=== PATIENT | male | born 1945 | race Caucasian/White ===

== ENCOUNTER 2021-10-28 14:50 | Inpatient (IN) | payer MEDICARE, BC ==
[~2021-10-28] VITALS: Ht 175.3 cm; Wt 74.8 kg
[2021-10-28 15:17] LABS: HEMATOCRIT 29.1 % (36.7-47.1); MEAN CORPUSCULAR HEMOGLOBIN 34.2 uug (23.8-33.4); MEAN CORPUSCULAR VOLUME 97.7 fL (73.0-96.2); PLATELET COUNT (AUTO) 162 K/uL (152-348)
[2021-10-28 15:25] LABS: CARBON DIOXIDE 31 mmol/L (21-32); CHLORIDE 98 mmol/L (98-107); CREATININE 1.7 mg/dL (0.6-1.3); GLUCOSE 119 mg/dL (74-106); UREA NITROGEN, BLOOD 47 mg/dL (7-18)
[2021-10-28 15:33] LABS: ALANINE AMINOTRANSFERASE 310 U/L (16-63); ALKALINE PHOSPHATASE 67 U/L (50-136); ASPARTATE AMINOTRANSFERASE 212 U/L (15-37); BILIRUBIN,DIRECT 0.5 mg/dL (0.0-0.2); BILIRUBIN,TOTAL 1.2 mg/dL (0.2-1.0); TOTAL PROTEIN, SERUM 6.5 g/dL (6.4-8.2)
[2021-10-28 15:43] LABS: THYROID STIMULATING HORMONE 7.479 mIU/mL (0.358-3.740)
[2021-10-28] MEDS ORDERED: ACETAMINOPHEN 325 MG TABLET PO PRN (18:00)
[2021-10-28] MEDS ORDERED: MAGNESIUM HYDROXIDE 30 ML LIQUID UDC PO PRN (18:00)
[2021-10-28] MEDS ORDERED: ONDANSETRON 4 MG/2 ML VIAL IV PRN (18:00)
[2021-10-28] MEDS ORDERED: REMEDY ESSENTIAL ZINC PASTE 113 GM TP PRN (18:00)
[2021-10-28] MEDS ORDERED: AZITHROMYCIN 250 MG TABLET PO ONE (18:30)
[2021-10-28] MEDS ORDERED: CEFTRIAXONE 1 G in IV DEXTROSE 5% 50 ML IV ONE (18:30)
--- NOTE | 2021-10-28 21:03 | NUR ---
report given to Ana RN pt to go to room 306
[2021-10-28] MEDS ORDERED: AZITHROMYCIN 250 MG TABLET ONE (21:06)
[2021-10-28] MEDS ORDERED: CEFTRIAXONE /D5W 50ML IVPB **ER PYXIS IV ONE (21:06)
--- NOTE | 2021-10-28 21:42 | NUR ---
ADMITTED FROM HOME VIA ER A 76 YO MALE WITH ADMITTING DX OFACUTE AND CHRONIC CHF, PNEUMONIA ACCOMPANIED BY DAUGHTER. AWAKE ALERT AND VERBALLY RESPONSIVE WITH PERIODS OF FORGETFULNESS/CONFUSION. WITH 2L NC SATURATING 95%, DENIES SOB OR PAIN,. SEEN BY DR ESCOBAR WITH ORDERS. ROUTINE ADMISSION ASSESSMENT DONE. SR ON MONITOR
--- NOTE | 2021-10-28 21:55 | NUR ---
pt tr to room 306 via [place] with all belongings, pt's daughter accompanied the pt upstairs.
[2021-10-28 22:00] VITALS: BP 124/73
--- NOTE | 2021-10-28 22:24 | NUR ---
SEEN AND EXAMINED BY BY DR ESCOBAR, SEE NOTES
[2021-10-28] MEDS: IV NS 1000 ML 1,000 ML IV PRN (22:40)
[2021-10-28] MEDS: ENOXAPARIN SODIUM 40 MG/0.4 ML DISP.SYRIN SQ SCH (22:40)
[2021-10-28] MEDS ORDERED: GLUCERNA 1.2 1000ML LIQUID GT PRN (23:15)
[2021-10-29] VITALS: BP 122/77
[2021-10-29 04:00] VITALS: BP 116/74
--- NOTE | 2021-10-29 05:39 | NUR ---
SLEPT COMFORTABLY DURING THE SHIFT, CLOSELY MONITORED. PATIENT TENDS TO GET UP BY SELF X2 DURING THE SHIFT. REALITY ORIENTATION DONE. SR ON MONITOR
[2021-10-29 06:52] LABS: HEMATOCRIT 28.4 % (36.7-47.1); MEAN CORPUSCULAR HEMOGLOBIN 34.7 uug (23.8-33.4); MEAN CORPUSCULAR VOLUME 96.4 fL (73.0-96.2); PLATELET COUNT (AUTO) 191 K/uL (152-348)
[2021-10-29 07:14] LABS: ALANINE AMINOTRANSFERASE 260 U/L (16-63); ALKALINE PHOSPHATASE 72 U/L (50-136); ASPARTATE AMINOTRANSFERASE 151 U/L (15-37); BILIRUBIN,TOTAL 1.1 mg/dL (0.2-1.0); CARBON DIOXIDE 30 mmol/L (21-32); CHLORIDE 101 mmol/L (98-107); CREATININE 1.6 mg/dL (0.6-1.3); GLUCOSE 83 mg/dL (74-106); MAGNESIUM 1.9 mg/dL (1.8-2.4); PHOSPHOROUS 4.7 mg/dL (2.5-4.9); POTASSIUM 3.9 mmol/L (3.5-5.1); TOTAL PROTEIN, SERUM 6.5 g/dL (6.4-8.2); UREA NITROGEN, BLOOD 41 mg/dL (7-18)
[2021-10-29 10:08] VITALS: BP 139/78
[2021-10-29] MEDS: IV NS 1000 ML 1,000 ML IV PRN (11:40)
--- NOTE | 2021-10-29 11:50 | NUR ---
WOUND CARE CONSULT: PT PRESENTS WITH BILATERAL HEEL INTACT DEEP TISSUE INJURIES AND SACRAL DEEP TISSUE INJURY IN EVOLUTION, ALL PRESENT ON ADMISSION. RECOMMENDATIONS MADE FOR SKIN PROTECTION AND WOUND CARE. DISCUSSED WITH NURSING STAFF. DR PENNINGTON NOTIFIED OF SURGICAL CONSULT REQUEST. IN AGREEMENT WITH PLAN OF CARE.
[2021-10-29 15:10] VITALS: BP 127/69
[2021-10-29 16:14] VITALS: BP 138/82
[2021-10-29] MEDS: CLOTRIMAZOLE 1% CREAM 30 GM TUBE TOP SCH (16:19)
--- NOTE | 2021-10-29 18:42 | NUR ---
Patient received care well throughout shift. Patient complaining of pain originating due to sacrum sore and pain around rectum. notified of patients complaints and requested medication to help alleviate pain. IV site patent and intact. Wound managed through wound care interventions. Bed left in lowest position with call light. Comfort measures provided. Will endorse information to PM nurse.
[2021-10-29] MEDS: ENOXAPARIN SODIUM 40 MG/0.4 ML DISP.SYRIN SQ SCH ×2 (21:00→21:28)
[2021-10-29 21:07] VITALS: BP 142/77
[2021-10-29] MEDS: CEFTRIAXONE 1 G in IV DEXTROSE 5% 50 ML IV SCH (21:22)
[2021-10-29] MEDS: AZITHROMYCIN IV 500 MG in IV DEXTROSE 5% 250 ML IV SCH (22:37)
[2021-10-29] MEDS: MORPHINE SULFATE 2 MG/1 ML DISP.SYRIN IV PRN (23:49)
[2021-10-30 00:39] VITALS: BP 149/82
[2021-10-30] MEDS: MORPHINE SULFATE 2 MG/1 ML DISP.SYRIN IV PRN ×3 (04:07→21:23)
[2021-10-30] MEDS: IV NS 1000 ML 1,000 ML IV PRN ×2 (04:16→17:25)
[2021-10-30 04:35] VITALS: BP 129/72
[2021-10-30] MEDS: CLOTRIMAZOLE 1% CREAM 30 GM TUBE TOP SCH ×2 (08:10→16:13)
[2021-10-30] MEDS: GABAPENTIN 100 MG CAPSULE PO SCH ×2 (12:21→16:12)
--- NOTE | 2021-10-30 16:19 | NUR ---
Dietary notified of patients overall feeding goal. [employer] Worker unavailable today, but when speaking to dietary, noted to notify vaccine manager regarding situation. Patient currently at 20cc/hr.
[2021-10-30 16:54] VITALS: BP 126/79
--- NOTE | 2021-10-30 17:57 | NUR ---
Patient received care well throughout shift with moderate complaints of pain. Pain managed through medicinal means, along with nonpharmacological methods. Patient cleaned and bathed during shift. Wound managed through appropriate interventions. IV site patent and intact. G-Tube patent and intact, currently receiving 20cc/hr. Due to no update from dietary, patient originally ordered to have rate increased 10cc every 6 hours. Patient currently tolerating feeding at 20cc/hr. Will endorse information to PM nurse. Bed left in lowest position with call light within reach. Comfort measures provided.
--- NOTE | 2021-10-30 19:40 | NUR ---
Received in bed alert oriented, no sob no chest pain, complain of emily anus pain due to sores, will medicate as ordered, patient refused Lovenox Sub Q, stated "it's not good for me", explained the risk and benefit of the medications. cont on abx IV with adverse reaction noted, cont to monitor, kept clean and dry, cont to monitor.
[2021-10-30] MEDS: ENOXAPARIN SODIUM 40 MG/0.4 ML DISP.SYRIN SQ SCH (21:00)
[2021-10-30 21:03] VITALS: BP 134/77
[2021-10-30] MEDS: CEFTRIAXONE 1 G in IV DEXTROSE 5% 50 ML IV SCH (21:11)
[2021-10-30] MEDS: AZITHROMYCIN IV 500 MG in IV DEXTROSE 5% 250 ML IV SCH (21:57)
--- NOTE | 2021-10-30 23:00 | NUR ---
Patient feeding was increased to 30cc per hour, tolerate well, no vomiting no diarrhea noted, no rediual noted, patient has soft BM small amount, kept clean dry and comfortable, condom cath in place draining with yellow color urine in moderate amount, on low air loss mattres for wound management, cont to monitor.
[2021-10-31] MEDS: MORPHINE SULFATE 2 MG/1 ML DISP.SYRIN IV PRN ×3 (03:11→17:09)
[2021-10-31 04:31] VITALS: BP 117/48
[2021-10-31] MEDS: GABAPENTIN 100 MG CAPSULE PO SCH ×3 (08:18→16:29)
[2021-10-31] MEDS: CLOTRIMAZOLE 1% CREAM 30 GM TUBE TOP SCH ×2 (08:18→16:30)
[2021-10-31 11:32] VITALS: BP 106/56
[2021-10-31 14:57] LABS: ALANINE AMINOTRANSFERASE 133 U/L (16-63); ALKALINE PHOSPHATASE 65 U/L (50-136); ASPARTATE AMINOTRANSFERASE 57 U/L (15-37); BILIRUBIN,TOTAL 0.6 mg/dL (0.2-1.0); CARBON DIOXIDE 29 mmol/L (21-32); CHLORIDE 106 mmol/L (98-107); CREATININE 1.4 mg/dL (0.6-1.3); GLUCOSE 124 mg/dL (74-106); POTASSIUM 5.1 mmol/L (3.5-5.1); TOTAL PROTEIN, SERUM 6.2 g/dL (6.4-8.2); UREA NITROGEN, BLOOD 32 mg/dL (7-18)
[2021-10-31] MEDS: GLUCERNA 1.2 1000ML LIQUID GT PRN (15:23)
[2021-10-31 15:55] LABS: *BILIRUBIN,URIN NEGATIVE (NEGATIVE); *BLOOD, URINE TRACE (NEGATIVE); *CLARITY,URINE CLEAR (CLEAR); *COLOR,URINE YELLOW (YELLOW); *KETONES,URINE NEGATIVE (NEGATIVE); LEUKOCYTE ESTERASE ,URINE NEGATIVE (NEGATIVE); NITRITE, URINE NEGATIVE (NEGATIVE); UGLUCOSE NEGATIVE (NEGATIVE)
[2021-10-31 16:00] VITALS: BP 106/69
[2021-10-31 16:10] LABS: *CREATININE,URINE 74.3 mg/dL (30-125)
[2021-10-31 20:06] VITALS: BP 106/59
[2021-10-31] MEDS: CEFTRIAXONE 1 G in IV DEXTROSE 5% 50 ML IV SCH (20:55)
[2021-10-31] MEDS: ENOXAPARIN SODIUM 40 MG/0.4 ML DISP.SYRIN SQ SCH (21:00)
--- NOTE | 2021-10-31 21:00 | NUR ---
PATIENT REFUSED SCHEDULED ENOXAPARIN DESPITE HEALTH TEACHING.
[2021-10-31] MEDS: AZITHROMYCIN IV 500 MG in IV DEXTROSE 5% 250 ML IV SCH (21:41)
[2021-11-01 00:07] LABS: BACTERIA,URINE NONE SEEN /HPF (NONE SEEN); RBC,URINE 0-3 /HPF (0-3); SQUAMOUS EPITHELIAL CELL,UR NONE SEEN /HPF (NONE SEEN); WBC,URINE NONE SEEN /HPF (0-3)
--- NOTE | 2021-11-01 00:35 | NUR ---
RECEIVED PATIENT IN BED. AAOX4. ABLE TO MAKES NEEDS KNOWN. ON ROOM AIR. GTUBE FEEDING PATENT AND INTACT. IV ACCESS PATENT AND INTACT. PATIENT DENIES SOB, CHEST PAIN OR DIZZINESS AT THIS TIME. CALL LIGHT WITHIN REACH. BED IN LOCKED POSITION. SAFETY PRECAUTIONS INITIATED.
[2021-11-01 04:06] VITALS: BP 106/62
[2021-11-01] MEDS: MORPHINE SULFATE 2 MG/1 ML DISP.SYRIN IV PRN ×2 (06:45→10:50)
[2021-11-01 07:41] LABS: HEMATOCRIT 28.7 % (36.7-47.1); MEAN CORPUSCULAR HEMOGLOBIN 34.3 uug (23.8-33.4); MEAN CORPUSCULAR VOLUME 96.5 fL (73.0-96.2); PLATELET COUNT (AUTO) 208 K/uL (152-348)
[2021-11-01] MEDS: GABAPENTIN 100 MG CAPSULE PO SCH ×3 (08:04→16:22)
[2021-11-01 08:20] LABS: ALANINE AMINOTRANSFERASE 113 U/L (16-63); ALKALINE PHOSPHATASE 63 U/L (50-136); ASPARTATE AMINOTRANSFERASE 45 U/L (15-37); BILIRUBIN,TOTAL 0.5 mg/dL (0.2-1.0); CARBON DIOXIDE 29 mmol/L (21-32); CHLORIDE 105 mmol/L (98-107); CHOLESTEROL 69 mg/dL (<200); CREATININE 1.5 mg/dL (0.6-1.3); GLUCOSE 128 mg/dL (74-106); HDL CHOLESTEROL 28 mg/dL (40-60); PHOSPHOROUS 4.5 mg/dL (2.5-4.9); POTASSIUM 4.1 mmol/L (3.5-5.1); TOTAL PROTEIN, SERUM 6.2 g/dL (6.4-8.2); TRIGLYCERIDES 52 MG/DL (30-150); UREA NITROGEN, BLOOD 29 mg/dL (7-18)
[2021-11-01] MEDS: CLOTRIMAZOLE 1% CREAM 30 GM TUBE TOP SCH ×2 (08:53→16:24)
[2021-11-01 09:19] LABS: IRON, SERUM 42 ug/dL (50-175)
[2021-11-01 11:33] VITALS: BP 105/60
[2021-11-01] MEDS: GLUCERNA 1.2 1000ML LIQUID GT PRN (13:42)
[2021-11-01 16:00] VITALS: BP 98/56
[2021-11-01] MEDS ORDERED: AZIT500V8 IV (17:27)
[2021-11-01] MEDS ORDERED: CEFT1VIA15 IV (17:27)
[2021-11-01] MEDS ORDERED: Morphine Sulfate Inj IV (17:27)
[2021-11-01] MEDS ORDERED: ACET325T53 PO (17:27)
[2021-11-01] MEDS ORDERED: Glucerna 1.2 GT (17:27)
[2021-11-01] MEDS ORDERED: MAGN400O6 PO (17:27)
[2021-11-01] MEDS ORDERED: GABA-532 PO (17:27)
[2021-11-01] MEDS ORDERED: MENT113O TP (17:27)
[2021-11-01] MEDS ORDERED: ENOX40DI SQ (17:27)
[2021-11-01] MEDS ORDERED: CLOT30CR24 TOP (17:27)
--- NOTE | 2021-11-01 18:28 | NUR ---
dc orders received noted and carried out.dc instruction and education given to the pt.dc pt to aru via bed in stable condition with g tube and heplock
== END 2021-11-01 18:30 | DRG 177 ==
LOC: ER 14:50 → TELE3 21:20 → MEDSURG3 10-30 09:50
PROVIDERS: ADMIT Internal Medicine; ATTEND Internal Medicine
DX: J69.0 Pneumonitis due to inhalation of food and vomit (principal); E43 Unspecified severe protein-calorie malnutrition; J96.01 Acute respiratory failure with hypoxia; N17.0 Acute kidney failure with tubular necrosis; G92.9 Unspecified toxic encephalopathy; D68.59 Other primary thrombophilia; I50.32 Chronic diastolic (congestive) heart failure; I13.0 Hypertensive heart and chronic kidney disease with heart failure and stage 1 through stage 4 chronic kidney disease, or unspecified chronic kidney disease; J15.9 Unspecified bacterial pneumonia; Z66 Do not resuscitate; Z20.822 Contact with and (suspected) exposure to COVID-19; D53.9 Nutritional anemia, unspecified; D63.8 Anemia in other chronic diseases classified elsewhere; E03.9 Hypothyroidism, unspecified; E66.01 Morbid (severe) obesity due to excess calories; G50.0 Trigeminal neuralgia; G62.9 Polyneuropathy, unspecified; I25.10 Atherosclerotic heart disease of native coronary artery without angina pectoris; Z86.73 Personal history of transient ischemic attack (TIA), and cerebral infarction without residual deficits; Z92.3 Personal history of irradiation; Z85.819 Personal history of malignant neoplasm of unspecified site of lip, oral cavity, and pharynx; Z93.1 Gastrostomy status; Z98.1 Arthrodesis status; R53.1 Weakness; R74.01 Elevation of levels of liver transaminase levels; L89.156 Pressure-induced deep tissue damage of sacral region; L30.8 Other specified dermatitis; Z74.09 Other reduced mobility; R13.10 Dysphagia, unspecified; M50.30 Other cervical disc degeneration, unspecified cervical region; N18.2 Chronic kidney disease, stage 2 (mild); Z68.24 Body mass index [BMI] 24.0-24.9, adult
CPT/HCPCS: 36415; 70450; 71045; 71250; 72125; 76770; 83550; 83605; 83735; 84100; 84300; 84443; 84484; 85025; 87040; 93005; 93307; 97161; A4663; A6209; A6213; G0378; J0456; J0696; J1650; J2270; J7040; J7050; Q0144; U0003; Z7610

== ENCOUNTER 2021-11-01 18:41 | Inpatient (IN) | payer MEDICARE, BC ==
[~2021-11-01] VITALS: Ht 175.3 cm; Wt 74.0 kg
[~2021-11-01 18:41] MED LIST: ACET325T53 PO; AZIT500V8 IV; CEFT1VIA15 IV; CLOT30CR24 TOP; ENOX40DI SQ; GABA-532 PO; Glucerna 1.2 GT; MAGN400O6 PO; MENT113O TP; Morphine Sulfate Inj IV
--- NOTE | 2021-11-01 19:00 | NUR ---
Admitted patient in ARU unit under the care of Dr Payne and Dr Caballero, patient alert oriented, no sob no chest pain, on room air, with sacral decubitus, right and left heel decub, incontinent/continent of bowel and bladder, patient able to make needs knows, on pain management due to sacral decub, pain meds effective at this time, cont to monitor.
[2021-11-01 20:00] VITALS: BP 113/72
[2021-11-01] MEDS ORDERED: ACETAMINOPHEN 325 MG TABLET PO PRN (20:30)
[2021-11-01] MEDS ORDERED: GLUCERNA GT PRN (20:30)
[2021-11-01] MEDS ORDERED: MAGNESIUM HYDROXIDE 30 ML LIQUID UDC PO PRN (20:30)
[2021-11-01] MEDS ORDERED: REMEDY ESSENTIAL ZINC PASTE 113 GM TP PRN (20:30)
[2021-11-01] MEDS ORDERED: GLUCERNA 1.2 1000ML LIQUID GT PRN (20:45)
[2021-11-01] MEDS ORDERED: AZITHROMYCIN IV 500 MG in IV DEXTROSE 5% 250 ML IV SCH (21:00)
[2021-11-01] MEDS: ENOXAPARIN SODIUM 40 MG/0.4 ML DISP.SYRIN SQ SCH ×2 (21:00→21:27)
[2021-11-01] MEDS: GABAPENTIN 100 MG CAPSULE PO SCH (21:25)
[2021-11-01] MEDS: MORPHINE SULFATE 2 MG/1 ML DISP.SYRIN IV PRN (22:32)
[2021-11-01] MEDS: CEFTRIAXONE 1 G in IV DEXTROSE 5% 50 ML IV SCH (22:33)
[2021-11-02] MEDS: MORPHINE SULFATE 2 MG/1 ML DISP.SYRIN IV PRN ×5 (03:42→21:35)
[2021-11-02 04:00] VITALS: BP 116/63
[2021-11-02] MEDS: LEVOTHYROXINE SODIUM 25 MCG TABLET GT SCH (06:16)
[2021-11-02 07:30] VITALS: BP 131/66
[2021-11-02] MEDS: GABAPENTIN 100 MG CAPSULE PO SCH ×2 (08:04→12:43)
[2021-11-02] MEDS: CLOTRIMAZOLE 1% CREAM 30 GM TUBE TOP SCH ×2 (08:05→16:13)
[2021-11-02] MEDS ORDERED: AZITHROMYCIN 500 MG VIAL IV SCH (09:00)
[2021-11-02] MEDS: MULTIVITAMINS,THERAPEUTIC TABLET GT SCH (09:14)
--- NOTE | 2021-11-02 10:47 | NUR ---
WOUND CARE CONSULT: PT PRESENTS WITH SACRAL DEEP TISSUE INJURY WHICH IS PRESENT ON ADMISSION. DR PENNINGTON NOTIFIED OF ADMISSION TO REHAB. RECOMMENDATIONS MADE FOR SKIN PROTECTION. DISCUSSED WITH NURSING STAFF. PT IS ON FIRST STEP CHHAYA CONDE MD IN AGREEMENT WITH PLAN OF CARE. Addendum: 11/02/21 at 1049 by COLLEEN GRACE RN ADDITIONAL: BILATERAL INTACT DEEP TISSUE INJURIES NOTED TO HEELS, PRESENT ON ADMISSION.
[2021-11-02] MEDS ORDERED: HYDROCODONE/APAP 10-325 MG TABLET PO PRN (13:00)
[2021-11-02] MEDS ORDERED: HYDROCODONE/APAP 10-325 MG TABLET GT PRN (14:36)
[2021-11-02] MEDS ORDERED: MAGNESIUM HYDROXIDE 30 ML LIQUID UDC GT PRN (14:37)
[2021-11-02 16:00] VITALS: BP 113/69
[2021-11-02] MEDS: GABAPENTIN 100 MG CAPSULE GT SCH (16:13)
[2021-11-02] MEDS: ACETAMINOPHEN 325 MG TABLET GT PRN (19:53)
[2021-11-02 20:00] VITALS: BP 123/64
[2021-11-02] MEDS: ENOXAPARIN SODIUM 40 MG/0.4 ML DISP.SYRIN SQ SCH (21:00)
[2021-11-02] MEDS: CEFTRIAXONE 1 G in IV DEXTROSE 5% 50 ML IV SCH (21:35)
[2021-11-03] MEDS: MORPHINE SULFATE 2 MG/1 ML DISP.SYRIN IV PRN ×2 (02:52→11:21)
[2021-11-03 04:00] VITALS: BP 110/53
--- NOTE | 2021-11-03 05:50 | NUR ---
Safety maintained throughout the night. Tolerated tube feedings, no residual. Able to make needs known. IV site leaking, new IV inserted, tolerated well. Tolerated all medications given. Wound care done. Will endorse to day shift.
[2021-11-03] MEDS: LEVOTHYROXINE SODIUM 25 MCG TABLET GT SCH (06:17)
[2021-11-03 08:04] VITALS: BP 106/59
[2021-11-03] MEDS: MULTIVITAMINS,THERAPEUTIC TABLET GT SCH (09:42)
[2021-11-03] MEDS: GABAPENTIN 100 MG CAPSULE GT SCH ×3 (09:42→17:27)
[2021-11-03] MEDS: CLOTRIMAZOLE 1% CREAM 30 GM TUBE TOP SCH ×2 (09:43→17:27)
--- NOTE | 2021-11-03 14:00 | NUR ---
INTERDISCIPLINARY TEAM CONFERENCE
[2021-11-03 16:15] VITALS: BP 98/54
--- NOTE | 2021-11-03 18:00 | NUR ---
PT AOX4 NO ACUTE DISTRESS NOTED. PT TOLERATED FEEDING AT 70CC/HR. CHANGE SACRAL WOUND DRESSING. LISETTE HEEL REDNESS APPLIED MEPILEX FOR PROTECTION. REPOSITIONED Q2H. NO PAIN COMPLAIN. IV SITE INTACT AND PATENT
[2021-11-03 20:00] VITALS: BP 108/64
[2021-11-03] MEDS ORDERED: CEFTRIAXONE 1 G in IV DEXTROSE 5% 50 ML IV SCH (21:00)
[2021-11-03] MEDS: ENOXAPARIN SODIUM 40 MG/0.4 ML DISP.SYRIN SQ SCH (21:23)
[2021-11-04] MEDS: MORPHINE SULFATE 2 MG/1 ML DISP.SYRIN IV PRN ×4 (01:30→18:16)
[2021-11-04 04:34] VITALS: BP 117/58
[2021-11-04] MEDS: LEVOTHYROXINE SODIUM 25 MCG TABLET GT SCH (06:25)
[2021-11-04 06:43] LABS: HEMATOCRIT 27.5 % (36.7-47.1); MEAN CORPUSCULAR VOLUME 95.9 fL (73.0-96.2); PLATELET COUNT (AUTO) 235 K/uL (152-348)
[2021-11-04] MEDS: GLUCERNA 1.2 1000ML LIQUID GT PRN (06:52)
[2021-11-04 07:13] LABS: ALANINE AMINOTRANSFERASE 71 U/L (16-63); ALKALINE PHOSPHATASE 62 U/L (50-136); ASPARTATE AMINOTRANSFERASE 37 U/L (15-37); BILIRUBIN,TOTAL 0.4 mg/dL (0.2-1.0); CARBON DIOXIDE 31 mmol/L (21-32); CHLORIDE 103 mmol/L (98-107); CREATININE 1.4 mg/dL (0.6-1.3); GLUCOSE 117 mg/dL (74-106); MAGNESIUM 2.1 mg/dL (1.8-2.4); PHOSPHOROUS 5.5 mg/dL (2.5-4.9); POTASSIUM 4.6 mmol/L (3.5-5.1); TOTAL PROTEIN, SERUM 6.5 g/dL (6.4-8.2); UREA NITROGEN, BLOOD 31 mg/dL (7-18)
[2021-11-04 07:32] VITALS: BP 111/66
[2021-11-04] MEDS: MULTIVITAMINS,THERAPEUTIC TABLET GT SCH (08:35)
[2021-11-04] MEDS: GABAPENTIN 100 MG CAPSULE GT SCH ×3 (08:36→16:01)
[2021-11-04] MEDS: CLOTRIMAZOLE 1% CREAM 30 GM TUBE TOP SCH ×2 (08:36→16:01)
--- NOTE | 2021-11-04 13:30 | NUR ---
INDIVIDUALIZED PLAN OF CARE
[2021-11-04 16:00] VITALS: BP 113/66
--- NOTE | 2021-11-04 18:32 | NUR ---
Patient received care well throughout shift with no complaints of pain or distress. IV site patent and intact. G-Tube patent and intact currently receiving 70cc/hr for 22 hours, off at 0600 and on at 0800. Pain managed through medicinal interventions. Wound dressing managed through appropriate interventions. Bed left in lowest position with call light within reach. Comfort measures provided. Will endorse information to PM nurse.
--- NOTE | 2021-11-04 19:30 | NUR ---
Received pt awake, alert and orientedx4. Pt tolerating gtube feeding. Pt IV intact. Received pt in no acute distress.Safety and comfort provided. Will continue to monitor.
[2021-11-04 20:05] VITALS: BP 129/60
[2021-11-04] MEDS: ENOXAPARIN SODIUM 40 MG/0.4 ML DISP.SYRIN SQ SCH (20:38)
--- NOTE | 2021-11-04 20:39 | NUR ---
Pt refused his LOvenox medication. Pt educated regarding his LOvenox medication.{t stable. Will continue to monitor.
[2021-11-05] MEDS: GLUCERNA 1.2 1000ML LIQUID GT PRN (03:49)
[2021-11-05 04:32] VITALS: BP 111/64
[2021-11-05] MEDS: LEVOTHYROXINE SODIUM 25 MCG TABLET GT SCH (06:15)
--- NOTE | 2021-11-05 06:40 | NUR ---
Pt in no acute distress. Iv intact. Prescribed medication given and pt tolerated it well. Pt stable. Pt assisted to the restroom. Pt tolerating gtube feeding. Pt can make his needs known. Will endorse to incoming nurse for continuity of care.
[2021-11-05 07:15] LABS: HEMATOCRIT 27.7 % (36.7-47.1); MEAN CORPUSCULAR HEMOGLOBIN 33.6 uug (23.8-33.4); MEAN CORPUSCULAR VOLUME 96.4 fL (73.0-96.2); PLATELET COUNT (AUTO) 233 K/uL (152-348)
[2021-11-05 07:48] LABS: ALANINE AMINOTRANSFERASE 68 U/L (16-63); ALKALINE PHOSPHATASE 64 U/L (50-136); ASPARTATE AMINOTRANSFERASE 34 U/L (15-37); BILIRUBIN,TOTAL 0.5 mg/dL (0.2-1.0); CARBON DIOXIDE 32 mmol/L (21-32); CHLORIDE 103 mmol/L (98-107); CREATININE 1.5 mg/dL (0.6-1.3); GLUCOSE 118 mg/dL (74-106); MAGNESIUM 2.3 mg/dL (1.8-2.4); PHOSPHOROUS 5.6 mg/dL (2.5-4.9); POTASSIUM 4.8 mmol/L (3.5-5.1); TOTAL PROTEIN, SERUM 6.5 g/dL (6.4-8.2); UREA NITROGEN, BLOOD 34 mg/dL (7-18)
[2021-11-05 07:55] VITALS: BP 114/63
[2021-11-05] MEDS: MULTIVITAMINS,THERAPEUTIC TABLET GT SCH (09:13)
[2021-11-05] MEDS: GABAPENTIN 100 MG CAPSULE GT SCH ×3 (09:13→17:11)
[2021-11-05] MEDS: MORPHINE SULFATE 2 MG/1 ML DISP.SYRIN IV PRN ×4 (09:13→23:38)
[2021-11-05] MEDS: CLOTRIMAZOLE 1% CREAM 30 GM TUBE TOP SCH ×2 (09:13→17:12)
[2021-11-05 11:58] VITALS: BP 115/61
[2021-11-05] MEDS: ACETAMINOPHEN 325 MG TABLET GT PRN (12:00)
[2021-11-05 15:54] VITALS: BP 96/53
--- NOTE | 2021-11-05 17:30 | NUR ---
Pt is a/o x 4, able to suction himself at bedside. Changed suction tubing due to mucus clogging. Pt is on 1L nasal cannula, changed nasal cannula as well. Pt complains of pain, asks for prn morphine q4h. comfort measures provided, call light within reach, will continue to monitor and endorse.
[2021-11-05 20:00] VITALS: BP 103/55
[2021-11-05] MEDS: ENOXAPARIN SODIUM 40 MG/0.4 ML DISP.SYRIN SQ SCH (20:52)
[2021-11-06] MEDS: GLUCERNA 1.2 1000ML LIQUID GT PRN (01:46)
[2021-11-06 04:00] VITALS: BP 112/63
[2021-11-06] MEDS: LEVOTHYROXINE SODIUM 25 MCG TABLET GT SCH (05:54)
[2021-11-06 07:49] VITALS: BP 120/73
[2021-11-06] MEDS: MULTIVITAMINS,THERAPEUTIC TABLET GT SCH (08:12)
[2021-11-06] MEDS: MORPHINE SULFATE 2 MG/1 ML DISP.SYRIN IV PRN ×4 (08:12→20:51)
[2021-11-06] MEDS: GABAPENTIN 100 MG CAPSULE GT SCH ×3 (08:12→16:18)
[2021-11-06] MEDS: CLOTRIMAZOLE 1% CREAM 30 GM TUBE TOP SCH ×2 (08:12→16:19)
[2021-11-06 11:56] VITALS: BP 133/59
[2021-11-06 16:00] VITALS: BP 137/76
--- NOTE | 2021-11-06 18:12 | NUR ---
Patient received care well throughout shift. Pain managed through appropriate medicinal interventions. Patient still receiving 1L of oxygen via nasal canula, saturating well. IV patent and intact. G-Tube patent and intact and scheduled to stop feeding at 0600. Bed left in lowest position with call light within reach. Will endorse information to PM nurse.
[2021-11-06 20:07] VITALS: BP 101/59
[2021-11-06] MEDS: THERAHONEY GEL 1.5 OZ TUBE TOP SCH (20:51)
[2021-11-06] MEDS: ENOXAPARIN SODIUM 40 MG/0.4 ML DISP.SYRIN SQ SCH (20:53)
--- NOTE | 2021-11-07 04:02 | NUR ---
Awake alert and oriented x3-4 Patient on continous tube feedings of Glucerna @70cc/hr. Tolerated well. No ill effects noted. VSS. Medicated with morphine as needed with relief obtained. Fall precaution maintained. Siderails up for safety. All due meds given. yyyyyyyyyyyyyyyyyyyyyyyyyyyyyyyyyyyyyyyyyyyyyyyyyyyyyyyyyyyyyyyyyyyyyyyyyyyyyyyyyyyyyyyyyyyy yyyyyyyyyyyyyyyyyyyyyyyyyyyyyyyyyyyyyyyyyyyyyyyyyyyyyyyyyyyyyyyyyyyyyyyyyyyyyyyyyyyyyyyyyyyy yyyyyyyyyyyyyyyyyyyyyyyyyyyyyyyyyyyyyyyyyyyyyyyyyyyyyyyyyyyyyyyyyyyyyyyyyyyyyyyyyyyyyyyyyyyy yyyyyyyyyyyyyyyyyyyyyyyyyyyyyyyyyyyyyyyyyyyyyyyyyyyyyyyyyyyyyyyyyyyyyyyyyyyyyyyyyyyyyyyyyyyy yyyyyyyyyyyyyyyyyyyyyyyyyyyyyyyyyyyyyyyyyyyyyyyyyyyyyyyyyyyyyyyyyyyyyyyyyyyyyyyyyyyyyyyyyyyy yyyyyyyyyyyyyyyyyyyyyyyyyyyyyyyyyyyyy
[2021-11-07 04:33] VITALS: BP 148/64
[2021-11-07] MEDS: LEVOTHYROXINE SODIUM 25 MCG TABLET GT SCH (06:06)
[2021-11-07] MEDS: ACETAMINOPHEN 325 MG TABLET GT PRN (06:12)
[2021-11-07] MEDS: MORPHINE SULFATE 2 MG/1 ML DISP.SYRIN IV PRN ×3 (06:47→20:59)
[2021-11-07 08:00] VITALS: BP 112/66
[2021-11-07] MEDS: GABAPENTIN 100 MG CAPSULE GT SCH ×3 (08:59→17:09)
[2021-11-07] MEDS: CLOTRIMAZOLE 1% CREAM 30 GM TUBE TOP SCH ×2 (08:59→17:10)
[2021-11-07] MEDS: MULTIVITAMINS,THERAPEUTIC TABLET GT SCH (08:59)
[2021-11-07] MEDS: THERAHONEY GEL 1.5 OZ TUBE TOP SCH (09:00)
--- NOTE | 2021-11-07 14:00 | NUR ---
ALERT AND ORIENTED FORGETFUL AT TIMES ON ROOM AIR WITH NO SOB REMAIN ON GT FEEDINGS ORDERED WITH NO S/S OF GASTRIC RESIDUAL DENIES NAUSEA OR VOMITING CONTINUE WITH PT/OT THERAPIES WITH FAIR ENDURANCE TURNED AND REPOSITIONED Q2H WITH TX TO DECUBITUS AREAS ORDERED NOT IN DISTRESS AT THIS TIME .
[2021-11-07 17:15] VITALS: BP 117/79
--- NOTE | 2021-11-07 18:00 | NUR ---
RESTING MORPHINE GIVEN REQUESTED AND EFFECTIVE MADE COMFORTABLE WILL CONTINUE TO OBSERVE.
[2021-11-07 20:15] VITALS: BP 113/64
[2021-11-07] MEDS: ENOXAPARIN SODIUM 40 MG/0.4 ML DISP.SYRIN SQ SCH (20:54)
[2021-11-07] MEDS: GLUCERNA 1.2 1000ML LIQUID GT PRN (22:28)
[2021-11-08 04:42] VITALS: BP 126/68
[2021-11-08] MEDS: LEVOTHYROXINE SODIUM 25 MCG TABLET GT SCH (06:47)
[2021-11-08 08:09] VITALS: BP 140/76
[2021-11-08] MEDS: GABAPENTIN 100 MG CAPSULE GT SCH ×3 (08:45→16:21)
[2021-11-08] MEDS: MULTIVITAMINS,THERAPEUTIC TABLET GT SCH (08:45)
[2021-11-08] MEDS: CLOTRIMAZOLE 1% CREAM 30 GM TUBE TOP SCH ×2 (08:47→16:22)
[2021-11-08] MEDS: THERAHONEY GEL 1.5 OZ TUBE TOP SCH (08:47)
[2021-11-08] MEDS: MORPHINE SULFATE 2 MG/1 ML DISP.SYRIN IV PRN ×2 (08:53→21:14)
--- NOTE | 2021-11-08 09:00 | NUR ---
NSG: Received Pt lying in bed. alert and oriented x 4, able to suction himself at bedside. Pt is on 1L nasal cannula, Pt complains of pain, asks for prn morphine q4h. comfort measures provided, call light within reach, call light within reach, will continue to monitor and endorse.
[2021-11-08 16:09] VITALS: BP 100/60
--- NOTE | 2021-11-08 19:00 | NUR ---
Received patient on bed, awake, alert oriented x3, with oxygen at 1L via nasal cannula saturating well, with ongoing G-tube feeding Glucerna at 70cc/hr for 22 hours cycle.no complaint of pain. Safety precautions provided, Call light placed within reach.
[2021-11-08 20:00] VITALS: BP 125/68
[2021-11-08] MEDS: ENOXAPARIN SODIUM 40 MG/0.4 ML DISP.SYRIN SQ SCH (20:20)
[2021-11-09] MEDS: GLUCERNA 1.2 1000ML LIQUID GT PRN ×2 (01:16→18:10)
[2021-11-09 04:00] VITALS: BP 109/57
--- NOTE | 2021-11-09 05:29 | NUR ---
Slept intermittently, not in respiratory distress, on room air. Assisted to sit at the edge of the bed. Went back to bed after few minutes. Vitally stable, for continuity of care.
[2021-11-09] MEDS: LEVOTHYROXINE SODIUM 25 MCG TABLET GT SCH (05:57)
[2021-11-09 07:50] VITALS: BP 104/59
[2021-11-09] MEDS: GABAPENTIN 100 MG CAPSULE GT SCH ×3 (09:43→17:35)
[2021-11-09] MEDS: THERAHONEY GEL 1.5 OZ TUBE TOP SCH (09:43)
[2021-11-09] MEDS: MULTIVITAMINS,THERAPEUTIC TABLET GT SCH (09:43)
[2021-11-09] MEDS: CLOTRIMAZOLE 1% CREAM 30 GM TUBE TOP SCH ×2 (09:43→18:09)
[2021-11-09 15:42] VITALS: BP 120/67
--- NOTE | 2021-11-09 18:37 | NUR ---
Received patient on bed, awake, alert oriented x3, respirations even and unlabored at room air saturating well, with ongoing G-tube feeding Glucerna at 70cc/hr for 22 hours cycle tolerated well no N/V .no complaint of pain. Up with PT /OT ambulate to BR with FWW Safety precautions provided, Call light placed within reach.
[2021-11-09 20:00] VITALS: BP 100/70
[2021-11-09] MEDS: ENOXAPARIN SODIUM 40 MG/0.4 ML DISP.SYRIN SQ SCH (20:45)
[2021-11-10 04:21] VITALS: BP 129/73
[2021-11-10] MEDS: LEVOTHYROXINE SODIUM 25 MCG TABLET GT SCH (05:48)
[2021-11-10 07:54] VITALS: BP 112/62
[2021-11-10] MEDS: CLOTRIMAZOLE 1% CREAM 30 GM TUBE TOP SCH ×2 (09:00→17:47)
[2021-11-10] MEDS: MULTIVITAMINS,THERAPEUTIC TABLET GT SCH (10:25)
[2021-11-10] MEDS: GABAPENTIN 100 MG CAPSULE GT SCH ×3 (10:25→17:47)
[2021-11-10] MEDS: THERAHONEY GEL 1.5 OZ TUBE TOP SCH (10:26)
[2021-11-10] MEDS: MORPHINE SULFATE 2 MG/1 ML DISP.SYRIN IV PRN ×2 (10:31→23:24)
--- NOTE | 2021-11-10 15:28 | NUR ---
INTERDISCIPLINARY TEAM CONFERENCE
[2021-11-10] MEDS: GLUCERNA 1.2 1000ML LIQUID GT PRN (15:35)
[2021-11-10 15:36] VITALS: BP 111/61
[2021-11-10 20:01] VITALS: BP 124/67
[2021-11-10] MEDS: ENOXAPARIN SODIUM 40 MG/0.4 ML DISP.SYRIN SQ SCH (21:09)
[2021-11-11 06:04] VITALS: BP 101/64
[2021-11-11] MEDS: LEVOTHYROXINE SODIUM 25 MCG TABLET GT SCH (06:18)
[2021-11-11 07:30] VITALS: BP 114/64
[2021-11-11] MEDS: GABAPENTIN 100 MG CAPSULE GT SCH ×3 (08:18→16:22)
[2021-11-11] MEDS: MULTIVITAMINS,THERAPEUTIC TABLET GT SCH (08:18)
[2021-11-11] MEDS: CLOTRIMAZOLE 1% CREAM 30 GM TUBE TOP SCH ×2 (08:19→16:22)
[2021-11-11] MEDS: THERAHONEY GEL 1.5 OZ TUBE TOP SCH (08:19)
[2021-11-11] MEDS: MORPHINE SULFATE 2 MG/1 ML DISP.SYRIN IV PRN ×3 (09:13→20:38)
--- NOTE | 2021-11-11 18:06 | NUR ---
Patient received care well throughout shift with moderate complaints of pain, managed through medicinal interventions. IV site patent and intact. G-Tube patent and intact, currently running 70cc/hr of Glucerna; off at 0600 and on at 0800. Patient tolerated PT/OT today. Bed left in lowest position. Comfort measures provided. Will endorse information to PM nurse.
[2021-11-11] MEDS: GLUCERNA 1.2 1000ML LIQUID GT PRN (18:35)
[2021-11-11 20:00] VITALS: BP 107/65
[2021-11-11] MEDS: ENOXAPARIN SODIUM 40 MG/0.4 ML DISP.SYRIN SQ SCH (20:18)
[2021-11-12] MEDS: MORPHINE SULFATE 2 MG/1 ML DISP.SYRIN IV PRN ×4 (03:46→20:45)
[2021-11-12 04:00] VITALS: BP 113/66
[2021-11-12] MEDS: LEVOTHYROXINE SODIUM 25 MCG TABLET GT SCH (06:19)
[2021-11-12 07:40] VITALS: BP 93/62
[2021-11-12] MEDS: GABAPENTIN 100 MG CAPSULE GT SCH ×3 (09:14→16:22)
[2021-11-12] MEDS: MULTIVITAMINS,THERAPEUTIC TABLET GT SCH (09:14)
[2021-11-12] MEDS: THERAHONEY GEL 1.5 OZ TUBE TOP SCH (09:15)
[2021-11-12] MEDS: CLOTRIMAZOLE 1% CREAM 30 GM TUBE TOP SCH ×2 (09:15→16:22)
[2021-11-12 15:50] VITALS: BP 118/72
[2021-11-12] MEDS: GLUCERNA 1.2 1000ML LIQUID GT PRN (15:53)
--- NOTE | 2021-11-12 17:44 | NUR ---
Patient tolerated care well throughout shift. Patient frustrated this morning due to lack of structure for PT/OT. Spoke to patient for reasoning of delay with therapy sessions. Pain managed through medicinal interventions. IV site patent and intact. G-Tube patent and intact, receiving 70cc/hr of Glucerna; off at 0600 on and 0800. Bed left in lowest position with call light within reach. Will endorse information to PM nurse.
[2021-11-12] MEDS: ENOXAPARIN SODIUM 40 MG/0.4 ML DISP.SYRIN SQ SCH (20:47)
[2021-11-12 21:04] VITALS: BP 112/76
[2021-11-12] MEDS ORDERED: TEMAZEPAM 15 MG CAPSULE PO PRN (23:30)
[2021-11-13 04:45] VITALS: BP 115/71
[2021-11-13] MEDS: LEVOTHYROXINE SODIUM 25 MCG TABLET GT SCH (06:24)
[2021-11-13 06:46] LABS: HEMATOCRIT 31.8 % (36.7-47.1); MEAN CORPUSCULAR HEMOGLOBIN 33.4 uug (23.8-33.4); MEAN CORPUSCULAR VOLUME 97.4 fL (73.0-96.2); PLATELET COUNT (AUTO) 237 K/uL (152-348)
[2021-11-13 07:18] LABS: ALANINE AMINOTRANSFERASE 60 U/L (16-63); ALKALINE PHOSPHATASE 80 U/L (50-136); ASPARTATE AMINOTRANSFERASE 36 U/L (15-37); BILIRUBIN,TOTAL 0.6 mg/dL (0.2-1.0); CARBON DIOXIDE 34 mmol/L (21-32); CHLORIDE 103 mmol/L (98-107); CREATININE 1.6 mg/dL (0.6-1.3); GLUCOSE 99 mg/dL (74-106); MAGNESIUM 2.2 mg/dL (1.8-2.4); PHOSPHOROUS 4.8 mg/dL (2.5-4.9); POTASSIUM 4.6 mmol/L (3.5-5.1); TOTAL PROTEIN, SERUM 7.3 g/dL (6.4-8.2); UREA NITROGEN, BLOOD 42 mg/dL (7-18)
[2021-11-13 07:54] VITALS: BP 115/68
[2021-11-13] MEDS: GABAPENTIN 100 MG CAPSULE GT SCH ×3 (08:00→16:08)
[2021-11-13] MEDS: MULTIVITAMINS,THERAPEUTIC TABLET GT SCH (08:00)
[2021-11-13] MEDS: MORPHINE SULFATE 2 MG/1 ML DISP.SYRIN IV PRN ×3 (09:17→20:26)
[2021-11-13] MEDS: CLOTRIMAZOLE 1% CREAM 30 GM TUBE TOP SCH ×2 (09:42→16:08)
[2021-11-13] MEDS: THERAHONEY GEL 1.5 OZ TUBE TOP SCH (09:43)
[2021-11-13] MEDS: GLUCERNA 1.2 1000ML LIQUID GT PRN (13:29)
[2021-11-13 16:29] VITALS: BP 138/69
[2021-11-13 20:00] VITALS: BP 126/70
[2021-11-13] MEDS: ENOXAPARIN SODIUM 40 MG/0.4 ML DISP.SYRIN SQ SCH (20:25)
[2021-11-14 04:00] VITALS: BP 111/70
[2021-11-14] MEDS: MORPHINE SULFATE 2 MG/1 ML DISP.SYRIN IV PRN ×2 (04:00→17:04)
[2021-11-14] MEDS: GLUCERNA 1.2 1000ML LIQUID GT PRN (06:16)
[2021-11-14] MEDS: LEVOTHYROXINE SODIUM 25 MCG TABLET GT SCH (06:16)
[2021-11-14 07:30] VITALS: BP 104/67
[2021-11-14] MEDS: CLOTRIMAZOLE 1% CREAM 30 GM TUBE TOP SCH ×2 (10:51→17:04)
[2021-11-14] MEDS: THERAHONEY GEL 1.5 OZ TUBE TOP SCH (10:51)
[2021-11-14] MEDS: MULTIVITAMINS,THERAPEUTIC TABLET GT SCH (10:51)
[2021-11-14] MEDS: GABAPENTIN 100 MG CAPSULE GT SCH ×3 (10:51→17:03)
[2021-11-14 16:00] VITALS: BP 109/55
[2021-11-14 20:25] VITALS: BP 126/74
[2021-11-14] MEDS: ENOXAPARIN SODIUM 40 MG/0.4 ML DISP.SYRIN SQ SCH (20:48)
[2021-11-15] MEDS: GLUCERNA 1.2 1000ML LIQUID GT PRN ×2 (00:55→21:08)
[2021-11-15] MEDS: MORPHINE SULFATE 2 MG/1 ML DISP.SYRIN IV PRN ×2 (01:03→10:37)
[2021-11-15 04:00] VITALS: BP 105/67
[2021-11-15] MEDS: LEVOTHYROXINE SODIUM 25 MCG TABLET GT SCH (05:52)
[2021-11-15 07:30] VITALS: BP 111/71
[2021-11-15] MEDS: GABAPENTIN 100 MG CAPSULE GT SCH ×3 (08:34→17:00)
[2021-11-15] MEDS: CLOTRIMAZOLE 1% CREAM 30 GM TUBE TOP SCH ×2 (08:35→17:00)
[2021-11-15] MEDS: MULTIVITAMINS,THERAPEUTIC TABLET GT SCH (08:35)
[2021-11-15] MEDS: THERAHONEY GEL 1.5 OZ TUBE TOP SCH (08:35)
[2021-11-15 16:00] VITALS: BP 101/66
[2021-11-15 20:03] VITALS: BP 118/64
[2021-11-15] MEDS: ENOXAPARIN SODIUM 40 MG/0.4 ML DISP.SYRIN SQ SCH (21:04)
[2021-11-16 04:03] VITALS: BP 139/84
[2021-11-16] MEDS: LEVOTHYROXINE SODIUM 25 MCG TABLET GT SCH (06:17)
[2021-11-16 07:32] VITALS: BP 130/78
[2021-11-16] MEDS: GABAPENTIN 100 MG CAPSULE GT SCH ×3 (08:03→17:12)
[2021-11-16] MEDS: MULTIVITAMINS,THERAPEUTIC TABLET GT SCH (08:03)
[2021-11-16] MEDS: CLOTRIMAZOLE 1% CREAM 30 GM TUBE TOP SCH ×2 (08:33→17:13)
[2021-11-16] MEDS: THERAHONEY GEL 1.5 OZ TUBE TOP SCH (08:33)
[2021-11-16 16:00] VITALS: BP 107/68
[2021-11-16 20:00] VITALS: BP 107/68
[2021-11-16] MEDS: ENOXAPARIN SODIUM 40 MG/0.4 ML DISP.SYRIN SQ SCH (20:23)
[2021-11-17 04:00] VITALS: BP 122/80
[2021-11-17] MEDS: LEVOTHYROXINE SODIUM 25 MCG TABLET GT SCH (06:28)
[2021-11-17 07:44] VITALS: BP 127/86
[2021-11-17] MEDS: GABAPENTIN 100 MG CAPSULE GT SCH ×3 (09:46→17:13)
[2021-11-17] MEDS: MULTIVITAMINS,THERAPEUTIC TABLET GT SCH (09:46)
[2021-11-17] MEDS: CLOTRIMAZOLE 1% CREAM 30 GM TUBE TOP SCH ×2 (09:47→17:15)
[2021-11-17] MEDS: THERAHONEY GEL 1.5 OZ TUBE TOP SCH (09:50)
--- NOTE | 2021-11-17 13:31 | NUR ---
INTERDISCIPLINARY TEAM CONFERENCE
[2021-11-17] MEDS ORDERED: LIDOCAINE 1% 30 ML VIAL INJ ONE (14:00)
[2021-11-17] MEDS ORDERED: LIDOCAINE 1%-EPI 1:100,000 20 ML VIAL IJ ONE (14:00)
[2021-11-17] MEDS ORDERED: SILVER NITRATE APPLICATOR STICK EACH TP ONE (14:00)
[2021-11-17 16:00] VITALS: BP 108/74
[2021-11-17] MEDS: GLUCERNA 1.2 1000ML LIQUID GT PRN (17:20)
--- NOTE | 2021-11-17 19:00 | NUR ---
Received patient on bed, alert, not in respiratory distress, with G-tube feeding at 70cc/hr. No complaint of pain, safety precautions provided, call light placed within reach.
[2021-11-17 20:29] VITALS: BP 122/69
[2021-11-17] MEDS: ENOXAPARIN SODIUM 40 MG/0.4 ML DISP.SYRIN SQ SCH (21:14)
[2021-11-18 05:38] VITALS: BP 113/74
--- NOTE | 2021-11-18 05:42 | NUR ---
Slept intermittently. no shortness of breath, no complaint of pain. Repositioned for comfort, vitally stable, for continuity of care.
[2021-11-18] MEDS: LEVOTHYROXINE SODIUM 25 MCG TABLET GT SCH (06:21)
[2021-11-18 07:43] VITALS: BP 113/75
[2021-11-18] MEDS: THERAHONEY GEL 1.5 OZ TUBE TOP SCH (09:00)
[2021-11-18] MEDS: ACETAMINOPHEN 325 MG TABLET GT PRN (09:13)
[2021-11-18] MEDS: CLOTRIMAZOLE 1% CREAM 30 GM TUBE TOP SCH (09:13)
[2021-11-18] MEDS: GABAPENTIN 100 MG CAPSULE GT SCH ×2 (09:13→13:31)
[2021-11-18] MEDS: MULTIVITAMINS,THERAPEUTIC TABLET GT SCH (09:13)
[2021-11-18 12:00] VITALS: BP 112/62
== END 2021-11-18 14:33 | DRG 981 ==
PROVIDERS: ADMIT Physical Medicine & Rehabilitation Pain Medicine; ATTEND Physical Medicine & Rehabilitation Pain Medicine
PROC: 0KBP0ZZ Excision of Left Hip Muscle, Open Approach (ICD-10-PCS; principal; 2021-11-17)
PROC: 0KBN0ZZ Excision of Right Hip Muscle, Open Approach (ICD-10-PCS; 2021-11-17)
DX: J69.0 Pneumonitis due to inhalation of food and vomit (principal); E43 Unspecified severe protein-calorie malnutrition; L89.154 Pressure ulcer of sacral region, stage 4; J96.01 Acute respiratory failure with hypoxia; N17.0 Acute kidney failure with tubular necrosis; I50.43 Acute on chronic combined systolic (congestive) and diastolic (congestive) heart failure; D68.59 Other primary thrombophilia; I13.0 Hypertensive heart and chronic kidney disease with heart failure and stage 1 through stage 4 chronic kidney disease, or unspecified chronic kidney disease; D53.9 Nutritional anemia, unspecified; D63.8 Anemia in other chronic diseases classified elsewhere; E03.9 Hypothyroidism, unspecified; G50.0 Trigeminal neuralgia; G62.9 Polyneuropathy, unspecified; I25.10 Atherosclerotic heart disease of native coronary artery without angina pectoris; I77.810 Thoracic aortic ectasia; Z93.1 Gastrostomy status; Z88.0 Allergy status to penicillin; Z91.018 Allergy to other foods; Z66 Do not resuscitate; Z79.890 Hormone replacement therapy; Z85.819 Personal history of malignant neoplasm of unspecified site of lip, oral cavity, and pharynx; Z98.1 Arthrodesis status; R53.1 Weakness; I69.391 Dysphagia following cerebral infarction; R13.10 Dysphagia, unspecified; N18.9 Chronic kidney disease, unspecified
CPT/HCPCS: 36415; 83735; 84100; 85025; 86803; 87806; 97161; 97535-GO-CO; A4663; A6209; A6213; J0456; J0696; J1650; J2001; J2270; J3490; J7050